=== PATIENT | female | born 1995 | race Caucasian/White ===

== ENCOUNTER → 2020-08-28 11:04 | Outpatient (CLI) | payer BC, SELFPAY ==
--- NOTE | ~2020-08-28 | US_ITS ---
EXAMINATION: US thyroid EXAM DATE: 08/28/2020 11:25 INDICATION: Hypothyroidism . TECHNIQUE: Multiple grayscale and Doppler images of the thyroid were obtained (by a technologist who performed the scan) and subsequently reviewed. Individual nodules and recommendations may be reporte d in accordance with TI-RADS system as designated by the 2017 ACR White Paper TI-RADS committee. The re is no prior study for comparison. FINDINGS: The right thyroid lobe measures 4.9 x 1.5 x 1.7 cm, the left measuring 3.6 x 0.9 x 1.6 cm. There is m ildly heterogeneous thyroid echogenicity without focal suspicious nodule identified. IMPRESSION: 1. Unremarkable thyroid ultrasound exam. Reviewed, dictated and finalized at location A. HOUSE ATTENDANT
== END ==
PROVIDERS: PCP Emergency Medicine; Visit Provider Emergency Medicine
DX: E03.9 Hypothyroidism, unspecified (principal)
CPT/HCPCS: 76536

== ENCOUNTER 2020-11-08 13:27 | Outpatient (CLI) | payer BC, SELFPAY ==
--- NOTE | ~2020-11-08 | CT_ITS ---
EXAMINATION: CT abdomen pelvis w con DATE: 11/08/2020 14:02 INDICATION: Right lower quadrant abdominal pain. TECHNIQUE: Computed tomography (CT) of the abdomen and pelvis was performed with 100 mL Omnipaque 350 intravenous contrast. Automated exposure control and iterative reconstruction technique were employe d. The dose-length product was 663.20 mGy-cm. COMPARISON: CT abdomen and pelvis 04/22/2019 FINDINGS: The visualized portions of the lung bases demonstrate mild atelectasis. No pleural effusion . The heart size is normal. No pericardial effusion. The liver, gallbladder, spleen, pancreas, adrena l glands, and kidneys are normal. There are no dilated loops of bowel. The appendix is normal. The ut erus and ovaries are unremarkable. There is trace pelvic ascites. There are no pathologically enlarge d lymph nodes. The bones are unremarkable. IMPRESSION: 1. No etiology for the patient's symptoms. Reviewed, dictated and finalized at location B.
[2020-11-08 15:44] LABS: Add Urine Microscopic? YES; Appearance Urine Clear (Clear); Bacteria Urine Trace /hpf; Bilirubin Urine Negative (Negative); Blood Urine Negative (Negative); Color Urine Straw (Yellow); Glucose Urine UA Negative (Negative); Ketones Urine Trace mg/dL (Negative); Leukocyte Esterase Ur Negative LEU/UL (Negative); Mucus Urine Rare /lpf; Nitrate Urine Negative (Negative); Protein Urine Negative (Negative); RBC Urine 0-2 /hpf (0-2); Squamous Epithelial Cell Urine Many /hpf (Few); Urobilinogen Urine Negative mg/dL (<2.0); WBC Urine 0-3 /hpf
[2020-11-08 15:51] LABS: Specific Grav Ur > 1.060 (1.001-1.035)
== END 2020-11-08 13:28 | disposition home or self-care (01) ==
PROVIDERS: PCP Emergency Medicine; Visit Provider Emergency Medicine
DX: R10.30 Lower abdominal pain, unspecified (principal)
CPT/HCPCS: 74177; 81001; Q9967

== ENCOUNTER 2022-06-28 21:19 | Outpatient (NON) | payer OTHER, SELFPAY | END 2022-06-28 21:20 | disposition home or self-care (01) | LOC: ANHLAB 21:21 | PROVIDERS: PCP Emergency Medicine; Visit Provider Emergency Medicine | DX: R30.0 Dysuria (principal) | CPT/HCPCS: 87086 ==

== ENCOUNTER 2022-12-09 07:53 | Emergency (ER) | payer OTHER, SELFPAY ==
[2022-12-09] VITALS (12 sets, daily range): BP systolic 105–136; BP diastolic 71–86; PULSE 90–137; RESP 16–21; TEMP 36.6; O2SAT 99–100
--- NOTE | 2022-12-09 08:11 | ECG_ITS ---
Measurements Intervals Banks Rate: 101 P: 58 RI: 139 QRS: 27 QRSD: 91 T: -9 QT: 316 QTc: 411 Interpretive Statements SINUS TACHYCARDIA NONSPECIFIC T-WAVE ABNORMALITY BORDERLINE ECG NO PREVIOUS ECG AVAILABLE FOR COMPARISON Electronically Signed On 12-09-2022 17:04:01 CDT by Andrea Bautista M.D.
[2022-12-09] MEDS: SODIUM CHLORIDE 0.9% IV 1,000 ML 999 ML IV CONT (08:31)
[2022-12-09] MEDS: LORazepam INJ (*CRX) 2 MG/ML VIAL 0.5 MG IV PUSH (08:31)
[2022-12-09 08:32] LABS: Eosinophils Absolute Auto 0.1 K/mm3 (0-0.3); Eosinophils Percent Auto 0.8 % (0-4.4); Hematocrit 41.1 % (37.0-47.0); Hemoglobin 14.4 g/dL (12.0-15.0); Immature Granulocyte Absolute 0.02 K/mm3 (0.00-0.031); Immature Granulocyte Percent A 0.3 % (0-0.5); Lymphocytes Absolute Auto 1.57 K/mm3 (0.9-3.2); Lymphocytes Percent Auto 23.7 % (18.3-44.2); Mean Corpuscular Hemoglobin 31.4 pg (26-34); Mean Corpuscular Volume 89.7 fl (80-100); Mean Platelet Volume 11.6 fl (7.4-10.4); Monocytes Absolute Auto 0.4 K/mm3 (0.1-0.6); Monocytes Percent Auto 5.4 % (2.6-8.5); Neutrophils Absolute Auto 4.6 K/mm3 (1.3-6.7); Neutrophils Percent Auto 69.8 % (45.5-73.1); Platelet Count Result 194 k/mm3 (150-375); Red Blood Count 4.58 M/mm3 (4.2-5.4); Red Cell Distribution Width 12.1 % (11.5-14.5); White Blood Count 6.6 K/mm3 (4.5-10.0)
[2022-12-09 08:42] LABS: Prothrombin Time 14.1 Seconds (11.1-14.7)
[2022-12-09 08:44] LABS: Partial Thromboplastin Time 77.4 SECONDS (22.3-36.8)
--- NOTE | 2022-12-09 08:46 | PC.NURSE ---
Called poison control, spoke with Tamera and she said that the amount that pt ingested is not enough to cause any damage and she is not expecting any problems and no treatments needed. If ED MD want cam do blood work to check liver enzymes. According to poison control pt needs to ingest over 17.5g to expect any damages.
[2022-12-09 08:47] LABS: Alanine Aminotransferase 18 U/L (6-35); Albumin Level 4.7 g/dL (3.5-5.1); Alkaline Phosphatase 54 U/L (38-126); Anion Gap 9 mmol/L (8-16); Aspartate Amino Transferase 25 U/L (14-36); Bilirubin,Total 0.5 mg/dL (0.2-1.3); Blood Urea Nitrogen 13 mg/dL (7-17); Calcium 9.1 mg/dL (8.4-10.2); Carbon Dioxide 24 mmol/L (22-30); Chloride 106 mmol/L (98-107); Estimated CRCL calculation 114 ml/min; Estimated Glomerular Filt Rate > 60; Glucose 125 mg/dL (65-110); Potassium 3.7 mmol/L (3.4-5.0); Sodium 139 mmol/L (137-145)
[2022-12-09 08:51] LABS: Acetaminophen < 10 ug/mL (10-30); Ethanol < 10 mg/dL (<10); Salicylate < 1.0 mg/dL (2-20)
[2022-12-09 08:52] LABS: Appearance Urine Cloudy (Clear); Bacteria Urine None Seen /hpf; Bilirubin Urine Negative (Negative); Blood Urine Negative (Negative); Color Urine Yellow (Yellow); Glucose Urine UA Negative (Negative); Ketones Urine Negative (Negative); Leukocyte Esterase Ur Trace LEU/UL (Negative); Nitrate Urine Negative (Negative); Non Pathogenic Casts 0-2; Protein Urine Negative (Negative); RBC Urine 0-2 /hpf (0-2); Specific Grav Ur 1.009 (1.001-1.035); Squamous Epithelial Cell Urine Few /hpf (Few); Urobilinogen Urine 0.2 mg/dL (<2.0); WBC Urine 0-5 /hpf; pH Urine 6.5 (5.0-9.0)
[2022-12-09 08:56] LABS: Add Urine Microscopic? YES
[2022-12-09 09:04] LABS: Amphetamine Screen Urine Negative (Negative); Barbiturate Screen Urine Negative (Negative); Benzodiazepines Screen Urine Positive (Negative); Cannabinoid Screen Urine Positive (Negative); Cocaine Screen Urine Negative (Negative); Methadone Screen Urine Negative (Negative); Opiate Screen Urine Negative (Negative); Phencyclidine Screen Urine Negative (Negative)
--- NOTE | 2022-12-09 09:57 | ED.GENADULT ---
HPI - General Adult General Chief complaint: Unspecified Stated complaint: poss tylenol od Time Seen by Provider: 12/09/22 07:59 History of Present Illness HPI narrative: Patient is a 27-year-old female who presents ER with concerns of possible overdose on acetaminophen. Reports she had a headache yesterday and was taking 2 g of Tylenol at a time. She did this over the course of 3 different medication administrations at 4-hour intervals. After she realized that she was taking too much Tylenol she purchased [id number] activated charcoal and took 4 g and also made herself vomit. She has been having anxiousness throughout the evening after reading about what may happen if you overdose on Tylenol so she came in for further evaluation. She denies any suicidal ideation or active depression. She reports this is merely a mistake. No abdominal pain at this time or nausea or vomiting. Denies fevers chills or sweats. No additional concerns. Related Data Home Medications Medication Instructions Recorded Confirmed lamotrigine 200 mg tablet 200 mg PO DAILY 04/12/22 06/28/22 paliperidone 1.5 mg 1.5 mg PO QAM 04/12/22 06/28/22 tablet,extended release 24 hr alprazolam 1 mg tablet 1 mg PO 07/04/22 clonazepam 1 mg tablet 1 mg PO 07/04/22 gabapentin 100 mg capsule 100 mg PO 07/04/22 trazodone 100 mg tablet 100 mg PO 07/04/22 Allergies Allergy/AdvReac Type Severity Reaction Status Date / Time ciprofloxacin Allergy Unknown Verified 12/09/22 08:08 Review of Systems Review of Systems: All systems reviewed & are unremarkable except as noted in HPI and below Constitutional: Constitutional: Denies chills and Denies fever(s) Respiratory: Respiratory: Denies cough and Denies dyspnea Gastrointestinal: Gastrointestinal: Denies abdominal pain, Denies diarrhea, Denies nausea and Reports vomiting Psychiatric: Psychiatric: Reports anxiety, Denies depression, Denies homicidal ideation and Denies suicidal ideation [facility] Past Medical History Medical History (Updated 12/09/22 @ 10:12 by Hayden Parry MD) Allergies Anxiety Family History Family History Father Hypertension Heart problem Mother Alcoholism Hypertension Heart problem Thyroid disorder Sibling Alcoholism Grandparent Alcoholism Cancer Hypertension Heart problem Social History Social History Smoking status: Never smoker Alcohol intake: never Substance use type: does not use Lack of Transportation: No Lack of Food: Never True Current Housing: I Have Housing Concerned About Future Housing: No Difficulty Paying Gas/Electric Bills: No Difficulty Paying for Meds: No Currently Unemployed: No Education: Master's Degree or Higher Difficulty w/ Childcare or Family Care: No Exam Narrative: GENERAL: Well-appearing, well-nourished, and in no acute distress. HEAD: Normocephalic, atraumatic. EYES: PERRL and EOMI. ENT: Mucous membranes moist. CHEST: Clear to auscultation. No respiratory distress. HEART: Tachycardic and regular. Normal peripheral pulses. ABDOMEN: Soft, nontender, nondistended. EXTREMITIES: Normal range of motion. No edema. SKIN: Warm, dry, no rash. NEURO: Alert and oriented x3. PSYCH: Mildly anxious, no SI or depression. Course Course Emergency Course: Patient resting comfortably and less anxious. She has been given reassurance. We have contacted poison control and they feel patient is safe for discharge and did not reach a toxic dose, they feel like she would have to take 17 g of acetaminophen. Vital Signs Vital signs: Vital Signs Temperature 97.9 F 12/09/22 07:58 Pulse Rate 132 H 12/09/22 07:58 Respiratory Rate 21 H 12/09/22 07:58 Blood Pressure 136/86 12/09/22 07:58 Pulse Oximetry 100 12/09/22 07:58 Oxygen Delivery Room Air 12/09/22 07:58 Temperature 97.9
== END 2022-12-09 10:10 | disposition home or self-care (01) ==
PROVIDERS: Emergency Provider Emergency Medicine; PCP Emergency Medicine
DX: T39.1X1A Poisoning by 4-Aminophenol derivatives, accidental (unintentional), initial encounter (principal); F41.9 Anxiety disorder, unspecified
CPT/HCPCS: 36415; 80048; 80076; 80307; 81001; 81025; 85025; 85610; 85730; 93005; 96361; 96374; 99284; J2060; J7030

== ENCOUNTER 2023-01-26 16:46 | Emergency (ER) | payer OTHER, SELFPAY ==
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
== END 2023-01-26 17:21 | disposition home or self-care (01) ==
PROVIDERS: Emergency Provider Nurse Practitioner Family; PCP Family Medicine
DX: S06.0X9A Concussion with loss of consciousness of unspecified duration, initial encounter (principal); Y04.8XXA Assault by other bodily force, initial encounter; F41.9 Anxiety disorder, unspecified
CPT/HCPCS: 99211; 99213; G0463

== ENCOUNTER 2023-02-12 08:36 | Outpatient (CLI) | payer OTHER, SELFPAY ==
--- NOTE | 2023-02-18 15:49 | WPDHOMESLEEP ---
Sleep Study - Home Unattended Date of Study: 02/12/23 Ordering Provider: Torri Cook DO Interpreting Provider: Torri Cook DO Home Sleep Study Type: Watch PAT Height: 1.68 m Weight: 86.183 kg Body Mass Index: 30.7 Neck Circumference (inches): 13 Hortense: 23 Reason for Sleep Study Daytime hypersomnia Sleep History The patient is a 28-year-old female that had a sleep study ordered for evaluation of hypersomnia. The patient occasionally awakens from sleep short of breath. She denies awakening at night with heartburn, belching or cough. She constantly snores loudly enough that others complain. He constantly has trouble sleeping when she has a cold. She occasionally wakes up gasping for air throughout the night. She frequently has breathing problems at night observed by herself or others. She frequently sweats excessively at night. She frequently has heart palpitations or irregular heartbeats during the night. She frequently falls asleep during the day but never while driving. She denies cataplexy and hypnagogic / hypnopompic hallucinations. She constantly has trouble at school or work due to sleepiness. She rarely feels unable to move waking up or falling asleep. She constantly feels afraid of going to sleep. She occasionally has nightmares but rarely remembers her dreams. She constantly has thoughts racing through her mind. She constantly feels sad, depressed and anxious. She constantly has muscular tension. She frequently notices parts of her body jerk. She frequently kicks during the night. She frequently has crawling and aching feelings in her legs and frequently has leg pain during the night. She constantly grinds her teeth during sleep and constantly awakens with morning jaw pain. She is constantly bothered by pain during the day but rarely awakened by pain during the night. She constantly wakes up feeling stiff in the morning. She constantly wakes up with sore or achy muscles. She constantly wakes up with pain in the neck, spine and other joints. She goes to bed at 11 a.m. on weekdays and between 11:00 p.m. to midnight on the weekends. It takes her 1 hour to fall asleep. She wakes up 1-2 times throughout the night to urinate and a can take anywhere from 30 minutes to 2 hours to fall back asleep. She wakes up between 7-8 a.m. on weekdays and between 7-9 a.m. on the weekends. She typically gets 7-8 hours of sleep per night. She will stay in bed for 20 minutes after waking up in the morning. She currently lives with her . She denies consuming any caffeinated beverages within 2 hours of bedtime. She denies engaging in physical exercise before bedtime. She will watch television before falling asleep. She denies taking naps in the afternoon or the evening. She consumes 1/3 of a cup of coffee per day. She is a former smoker. She denies alcohol and recreational drug use. [facility] Past Medical History Medical History Allergies Anxiety Family History Family History Father Hypertension Heart problem Mother Alcoholism Hypertension Heart problem Thyroid disorder Sibling Alcoholism Grandparent Alcoholism Cancer Hypertension Heart problem Social History Social History Smoking status: Never smoker Alcohol intake: never Substance use type: does not use Lack of Transportation: No Lack of Food: Never True Current Housing: I Have Housing Concerned About Future Housing: No Difficulty Paying Gas/Electric Bills: No Difficulty Paying for Meds: No Currently Unemployed: No Education: Master's Degree or Higher Difficulty w/ Childcare or Family Care: No Medications Home Medications Medication Instructions Recorded Confirmed Type alprazolam 1 mg tablet 1 mg PO DAILY 07/04/22 01/30/23
[2023-02-18 15:57] VITALS: BMI 30.7
== END 2023-02-13 10:05 | disposition home or self-care (01) ==
LOC: ANHCSM 09:06
PROVIDERS: PCP Family Medicine; Visit Provider Family Medicine
DX: G47.9 Sleep disorder, unspecified (principal)
CPT/HCPCS: 95800

== ENCOUNTER 2023-08-21 12:42 | Outpatient (CLI) | payer BC, SELFPAY ==
[2023-08-21 20:19] LABS: Appearance Urine Clear (Clear); Bilirubin Urine Negative (Negative); Blood Urine Negative (Negative); Color Urine Yellow (Yellow); Glucose Urine UA Negative (Negative); Ketones Urine Negative (Negative); Leukocyte Esterase Ur Negative LEU/UL (Negative); Nitrate Urine Negative (Negative); Protein Urine Negative (Negative); Specific Grav Ur 1.005 (1.001-1.035); Urobilinogen Urine 0.2 mg/dL (<2.0)
[2023-08-21 20:20] LABS: Add Urine Microscopic? NO
== END 2023-08-21 12:43 | disposition home or self-care (01) ==
LOC: ANHGOSHLAB 12:44
PROVIDERS: PCP Emergency Medicine; Visit Provider Emergency Medicine
DX: R30.0 Dysuria (principal)
CPT/HCPCS: 81003

== ENCOUNTER 2024-05-03 12:17 | Emergency (ER) | payer BC, SELFPAY ==
--- NOTE | ~2024-05-03 | XR_ITS ---
EXAMINATION: XR toe 1st RT min 2V DATE: 05/03/2024 12:44 INDICATION: Right great toe injury. TECHNIQUE: 4 views of right great toe were obtained. COMPARISON: None. FINDINGS: Alignment is normal. No fracture. Joint spaces are normal. IMPRESSION: 1. No fracture. Reviewed, dictated and finalized at location A. OR SUSTAINABILITY CONSULTANT IMPRESSION: 1. No fracture.
[2024-05-03 12:25] VITALS: BP 117/88; PULSE 64; RESP 16; TEMP 36.4; O2SAT 99
[2024-05-03 12:26] VITALS: BP 117/88; PULSE 64; RESP 16; TEMP 36.4; O2SAT 99
--- NOTE | 2024-05-03 12:33 | ED.LOWEXIN ---
HPI - Extremity Injury (Lower) General Chief Complaint: Extremity Injury, Lower Stated Complaint: Injured Toe Right Foot Time Seen by Provider: 05/03/24 12:38 Source: patient, RN notes reviewed and old records reviewed Mode of arrival: ambulatory Limitations: no limitations History of Present Illness HPI Narrative: 29 year old female accompanied by spouse presents to express care with complaints of stubbing her right great toe on the wall on Friday with medial aspect of toe nail loose with redness along nail bed and some drainage reported. Patient reports that she has been soaking her right great toe in Epsom salt soaks rinsing with water and then applying Betadine ointment to nail bed. Patient concerned of infection and states odor to her toe nail drainage. Patient states that she has been taking Ibuprofen and Tylenol for her discomfort.Patient reports that she has appointment with podiatry later in week to have big toe nails removed bilaterally due to ingrown nails MD complaint: other (toe injury) Onset (ago): day(s) (3 days ago) Injury: Right: toes (right great toe) Type of Injury: blunt Severity scale (1-10): 7 Treatments prior to arrival: NSAIDS and other (soaking in epsom salt soaks, betadine ointment, Tylenol and Ibuprofen) Related Data Home Medications Medication Instructions Recorded Confirmed alprazolam 1 mg tablet 1 mg PO DAILY 07/04/22 05/03/24 clonazepam 1 mg tablet 1 mg PO HS 07/04/22 05/03/24 Allergies Allergy/AdvReac Type Severity Reaction Status Date / Time ciprofloxacin Allergy Unknown Verified 05/03/24 12:25 prednisone AdvReac Unknown Rash Verified 05/03/24 12:25 Review of Systems Review of Systems: CONSTITUTIONAL: Denies fever, chills, or sweats. EYES: Denies visual changes, redness, or discharge. ENT: Denies rhinorrhea, congestion, sore throat, or otalgia. CARDIOVASCULAR: Denies chest pain, palpitations, or edema. RESPIRATORY: Denies cough or dyspnea. GASTROINTESTINAL: Denies abdominal pain, nausea, vomiting, or diarrhea. GENITOURINARY: Denies dysuria or hematuria. SKIN: Denies rash or itching. MUSCULOSKELETAL: Denies back pain,positive pain to right great toe with medial aspect of toenail loose with some purulent drainage, or myalgia. NEUROLOGIC: Denies headache, numbness, or weakness. PSYCHIATRIC: Reports anxiety or depression. All systems reviewed & are unremarkable except as noted in HPI and below PMFSH Past Medical History Medical History Allergies Anxiety Family History Family History Father Hypertension Heart problem Mother Alcoholism Hypertension Heart problem Thyroid disorder Sibling Alcoholism Grandparent Alcoholism Cancer Hypertension Heart problem Social History Social History Smoking status: Never smoker Alcohol intake: never Substance use type: does not use Lack of Transportation: No Lack of Food: Never True Current Housing: I Have Housing Concerned About Future Housing: No Difficulty Paying Gas/Electric Bills: No Difficulty Paying for Meds: No Currently Unemployed: No Education: Master's Degree or Higher Difficulty w/ Childcare or Family Care: No Comments At time of signature, agree with nursing past medical, surgical, social and family history. There is no relevant family history pertinent to the presenting complaint Exam Narrative: GENERAL: Well-appearing, well-nourished, and in no acute distress. HEAD: Normocephalic, atraumatic. EYES: PERRLA and EOMI. ENT: Nares clear, no rhinorrhea or epistaxis. Mucous membranes moist.TM's normal throat pink with no swelling or lesions NECK: Supple. no lymphadenopathy CHEST: Clear to auscultation. No respiratory distress.SAO2 99% on room air HEART: Regular rate and rhythm. No murmur heard. Normal peripheral pulses. ABDOMEN: Soft, nontender, nondistended, normal active bowel sounds. EXTREMITIES: Normal range of motion. No edema. Pa with some swelling to right great toe after stubbing on wall on Friday with medial aspect of great toe nail loose with reported purulent drainage, has soaked great toe in Epsom salt soaks, applied Betadine ointment to great toenail area and has been taking Tylwn and Ibuprofen for her toe pain, concern for fracture of toe. SKIN: Warm, dry, no rash. NEURO: No focal deficits. Alert and oriented x3. Course Course Emergency Course: Patient is aware of diagnosis, understands and agrees to treatment plan.? Anticipatory guidance given.? Patient agrees to follow-up as directed and is aware of reasons to seek care at the emergency department. Portions of this record may have been created with voice recognition software Level of Care: Express Care Visit Vital Signs Vital signs: Vital Signs Temperature 36.4 C 05/03/24 12:25 Pulse Rate 64 05/03/24 12:25 Respiratory Rate 16 05/03/24 12:25 Blood Pressure 117/88 05/03/24 12:25 Pulse Oximetry 99 05/03/24 12:25 Oxygen Delivery Room Air 05/03/24 12:25 Temperature 36.4 C 05/03/24 12:26 Pulse Rate 64 05/03/24 12:26 Respiratory Rate 16 05/03/24 12:26 Blood Pressure 117/88 05/03/24 12:26 Pulse Oximetry 99 05/03/24 12:26 Oxygen Delivery Room Air 05/03/24 12:26 Reviewed MDM - Extremity Injury (Lower) Differential Diagnosis Differential diagnosis: Likely fracture of toe and other (toe nail injury, possible infection right great toe, evaluation of wound) Medical Records Attestation: I reviewed the patient's medical records. Imaging Data Attestation: I personally reviewed and interpreted this imaging study as follows: My impression: no fracture Radiologist's impression: Express Care [address] [id number] XRay Report Signed Patient: Yesy Cortes : 1995 MR#: [id number] Age: 29 Acct:[id number] Loc: [id number] ADM Date: 05/03/24Attending Dr: Ordering Physician: Laurel Lan APRN Date of Service: 05/03/24 Procedure(s): XR toe 1st RT min 2V Accession Number(s): [id number] cc: Laurel Lan APRN; Fredo White DO~ EXAMINATION: XR toe 1st RT min 2V DATE: 05/03/2024 12:44 INDICATION: Right great toe injury. TECHNIQUE: 4 views of right great toe were obtained. COMPARISON: None. FINDINGS: Alignment is normal. No fracture. Joint spaces are normal. IMPRESSION: 1. No fracture. Reviewed, dictated and finalized at location A. [place] REMOTE SENSING SCIENTIST Dictated By: Jd Malik MD 05/03/24 1249 Signed By: <Electronically signed by Jd Malik MD in OV> Critical Care Time Critical Care Time Critical Care Time: No Discharge Plan Discharge Clinical Impression: Injury of right great toe, Injury of nail bed of toe Patient Disposition: Home, Self-Care Condition: Stable Instructions: Antibiotic Form, Wound Infection (ED), Foot Contusion (ED) Additional Instructions: soak right great toe in warm soapy water using Hibiclens soap pat dry apply mupirocin ointment twice daily watch for increasing infection--redness, swelling, drainage Tylenol or ibuprofen for any fever pain may use ice to area for 20 minutes every 4 for hours 3-4 times daily follow up with PCP in 7-10 days for a wound check recheck if develop fever, chills, increasing symptom Go to the ER if your symptoms become worse of if ANY new symptoms develop antibiotic as prescribed complete all doses take probiotic while taking this medication follow-up with your hotel or motel receptionist on , Prescriptions: New mupirocin 2 % ointment 1 applic topical BID Qty: 22 0RF clindamycin HCl 300 mg capsule 300 mg PO Q8H Qty: 30 0RF No Action clonazepam 1 mg tablet 1 mg PO HS alprazolam 1 mg tablet 1 mg PO DAILY drospirenone-ethinyl estradiol [Loryna (28)] 3-0.02 mg tablet 1 tablet PO DAILY Qty: 84 3RF Follow-up/Referrals: Fredo White DO [Primary Care Provider] - Time of Disposition: 13:07 Quality [place] Coma Scale Eyes: Open Verbal: Oriented and Alert Motor: Follows Commands [place] Total Score: 15
== END 2024-05-03 13:09 | disposition home or self-care (01) ==
PROVIDERS: Emergency Provider Registered Nurse; PCP Internal Medicine
DX: S99.921A Unspecified injury of right foot, initial encounter (principal); W22.01XA Walked into wall, initial encounter; F41.9 Anxiety disorder, unspecified
CPT/HCPCS: 73660; 99213; G0463

== ENCOUNTER 2024-08-31 17:26 | Emergency (ER) | payer BC, SELFPAY ==
--- NOTE | 2024-08-31 17:38 | ED.URI ---
HPI - URI/Sore Throat General Chief Complaint: Upper Respiratory Infection Stated Complaint: VOMITING/SWEATS/BODY ACHES/SOB Time Seen by Provider: 08/31/24 18:11 Source: patient, RN notes reviewed and old records reviewed Mode of arrival: ambulatory Limitations: no limitations History of Present Illness HPI Narrative: patient presents with complaints of flu-like symptoms for 5 days. She has been taking Tylenol and ibuprofen for her symptoms with moderate relief. She reports that she has begun to notice some wheezing, especially when she is lying down at night Related Data Home Medications ?Medication ?Instructions ?Recorded ?Confirmed ?Last Taken ?Type alprazolam 1 mg tablet 1 mg PO DAILY 07/04/22 07/23/24 Unknown History clonazepam 1 mg tablet 3 mg PO HS 06/28/24 07/23/24 Unknown History hydroxyzine HCl 10 mg tablet 10 mg PO TID PRN 06/28/24 07/23/24 Unknown History lamotrigine 200 mg tablet 200 mg PO DAILY 06/28/24 07/23/24 Unknown History (Lamictal) melatonin 10 mg capsule 10 mg PO QHS 06/28/24 07/23/24 Unknown History paliperidone 3 mg tablet,extended 3 mg PO QAM 06/28/24 07/23/24 Unknown History release 24 hr propranolol 10 mg tablet 10 mg PO Q12H 06/28/24 07/23/24 Unknown History trazodone 150 mg tablet 150 mg PO QHS PRN 06/28/24 07/23/24 Unknown History amitriptyline 10 mg tablet mg 08/31/24 Unknown History hydroxyzine HCl 25 mg tablet mg 08/31/24 Unknown History propranolol 20 mg tablet mg 08/31/24 Unknown History quetiapine 50 mg tablet mg 08/31/24 Unknown History Allergies Allergy/AdvReac Type Severity Reaction Status Date / Time ciprofloxacin Allergy Unknown Verified 08/31/24 17:48 prednisone AdvReac Unknown Rash Verified 08/31/24 17:48 Review of Systems Review of Systems: All systems reviewed & are unremarkable except as noted in HPI and below Constitutional: Constitutional: Reports no additional constitutional complaints, Reports body ache(s), Reports chills, Reports fever(s), Reports headache(s) and Reports lethargy ENT: Reports system reviewed and no additional complaints, except as documented, Reports nasal discharge and Reports sore throat Cardiovascular: Cardiovascular: Reports no additional cardiovascular complaints Respiratory: Respiratory: Reports no additional respiratory complaints, Reports cough and Reports wheezing Gastrointestinal: Gastrointestinal: Reports no additional gastrointestinal complaints and Reports nausea PMFSH Past Medical History Medical History Polyarthralgia Anxiety Allergies Family History Family History Father Hypertension Heart problem Mother Alcoholism Hypertension Heart problem Thyroid disorder Sibling Alcoholism Grandparent Alcoholism Cancer Hypertension Heart problem Social History Social History Smoking status: Never smoker Alcohol intake: never Substance use type: does not use Lack of Transportation: No Lack of Food: Never True Current Housing: I Have Housing Concerned About Future Housing: No Difficulty Paying Gas/Electric Bills: No Difficulty Paying for Meds: No Currently Unemployed: No Education: Master's Degree or Higher Difficulty w/ Childcare or Family Care: No Comments At the time of my signature, I reviewed and agree with the nursing past medical, surgical, social, and family history. There is no relevant family history pertinent to the patient complaint. Exam Const: General: cooperative, no acute distress, alert and awake Orientation/consciousness: oriented to person, oriented to place and oriented to time HENMT: Head: normal to inspection Ears: TM's normal bilaterally Mouth: Yes moist mucous membranes Resp: Effort & Inspection: normal respiratory effort and able to speak in complete sentences Auscultation: clear to auscultation bilaterally, no crackles, no rales, no rhonchi and wheezes scattered wheezes Cardio: Palpation: normal PMI Rate: regular rate Rhythm: regular rhythm Heart sounds: S1 normal heart sound present and S2 normal heart sound present Neuro: General: oriented to person, oriented to place and oriented to time Cranial nerves: Yes CN's II-XII intact bilaterally Psych: Appearance: grossly normal Thought process: Normal thought process present Insight: Good insight present (Psych) Judgement: Good judgement present (Psych) Course Course Level of Care: Express Care Visit Vital Signs Vital signs: Vital Signs Oxygen Delivery Room Air 08/31/24 18:05 Temperature 98 F 08/31/24 18:46 Pulse Rate 86 08/31/24 18:46 Respiratory Rate 16 08/31/24 18:46 Blood Pressure 117/62 08/31/24 18:46 Pulse Oximetry 98 08/31/24 18:46 Oxygen Delivery Room Air 08/31/24 18:05 Reviewed MDM - URI/Sore Throat MDM Narrative Medical decision making narrative: Patient with mild scattered wheezes on exam. Positive influenza. Start steroids, bronchodilator, cough suppressant. Also start anti emetic. Emergency department precautions discussed with patient. Discharge instructions reviewed with patient, as well as provided in writing per nursing staff. The instructions also include specific and strict return/GO TO THE ER as well as f/u information. All questions have been answered, and the patient deny any further questions with discharge and discharge plan. Some parts of this dictation were generated by voice recognition software and may contain typographical and/or grammatical inaccuracies. Differential Diagnosis Differential diagnosis: Likely upper respiratory infection, otitis media, bronchitis and influenza Medical Records Attestation: I reviewed the patient's medical records. Lab Data Attestation: I reviewed the patient's lab results. Labs: Lab Results 08/31/24 Range/Units 17:46 POC Influenza A Ag Positive (Negative) POC Influenza B Ag Negative (Negative) POC SARS CoV-2 Ag Negative (Negative) POC Grp A Strep Screen Negative (Negative) Discharge Plan Discharge Clinical Impression: Influenza Patient Disposition: Home, Self-Care Condition: Stable Instructions: Antibiotic Form, Influenza (ED) Additional Instructions: take medication as prescribed. Follow-up with primary care provider. Emergency department for new or worse symptoms Patient Language: Maltese Prescriptions: New methylprednisolone [Medrol (Heladio)] 4 mg tablets,dose pack See Rx Instructions .ROUTE .COMPLEX Qty: 21 0RF Rx Instructions: for 6 days albuterol sulfate [Ventolin HFA] 90 mcg/actuation HFA aerosol inhaler 2 puff inhalation QID PRN (Reason: shortness of breath or wheezing) Qty: 8.5 0RF ondansetron 4 mg tablet,disintegrating 4 mg PO Q6H PRN (Reason: nausea and vomiting) Qty: 30 0RF benzonatate 200 mg capsule 200 mg PO TID PRN (Reason: cough) Qty: 30 0RF No Action amitriptyline 10 mg tablet hydroxyzine HCl 25 mg tablet propranolol 20 mg tablet quetiapine 50 mg tablet alprazolam 1 mg tablet 1 mg PO DAILY clonazepam 1 mg tablet 3 mg PO HS paliperidone 3 mg tablet extended release 24hr 3 mg PO QAM lamotrigine [Lamictal] 200 mg tablet 200 mg PO DAILY trazodone 150 mg tablet 150 mg PO QHS PRN melatonin 10 mg capsule 10 mg PO QHS hydroxyzine HCl 10 mg tablet 10 mg PO TID PRN propranolol 10 mg tablet 10 mg PO Q12H triamcinolone acetonide 0.1 % cream 1 applic topical BID Qty: 80 1RF drospirenone-ethinyl estradiol [Loryna (28)] 3-0.02 mg tablet 1 tablet PO DAILY Qty: 84 3RF cyclobenzaprine 10 mg tablet 10 mg PO TID PRN (Reason: muscle spasm) Qty: 30 2RF Follow-up/Referrals: Fredo White DO [Primary Care Provider] - 1 Week Stand Alone Forms: Work/School Release IP Time of Disposition: 18:26
[2024-08-31 17:49] LABS: EDCOVIDSCREEN Negative (Negative); EDINFLUASCREEN Positive (Negative); EDINFLUBSCREEN Negative (Negative); EDSTREPNEGPOS1 Negative (Negative)
[2024-08-31] MEDS: methylPREDNISolone SOD SUCC 125 MG VIAL IM (18:29)
[2024-08-31 18:46] VITALS: BP 117/62; PULSE 86; RESP 16; TEMP 36.6; O2SAT 98
== END 2024-08-31 18:58 | disposition home or self-care (01) ==
PROVIDERS: Emergency Provider Nurse Practitioner Family; PCP Internal Medicine
DX: J10.1 Influenza due to other identified influenza virus with other respiratory manifestations (principal); Z20.822 Contact with and (suspected) exposure to COVID-19
CPT/HCPCS: 87081; 87426; 87804; 87880; 99213; G0463; J2919

== ENCOUNTER 2024-09-16 13:33 | Emergency (ER) | payer BC, SELFPAY ==
--- NOTE | ~2024-09-16 | XR_ITS ---
XR chest 2V Ordering provider: Jayson Valentine APRN History: 29 years Female with . cough/sob influenza + on 09/01 . Comparison: None. FINDINGS: MEDIASTINUM: The cardiac silhouette is not enlarged. LUNGS: No infiltrates, effusions or pneumothorax. OTHER: No free air under the diaphragm. IMPRESSION: No acute cardiopulmonary pathology. Reviewed, dictated and finalized at location A.
--- NOTE | 2024-09-16 13:39 | ED_ITS ---
HPI - SOB/Dyspnea General Chief Complaint: Upper Respiratory Infection Stated Complaint: Trouble breathing Time Seen by Provider: 09/16/24 13:45 Source: patient Mode of arrival: ambulatory Limitations: no limitations History of Present Illness HPI Narrative: Yesy is a 29-year-old female patient presenting to the clinic today with complaints of difficulty breathing. She reports she has had cough and congestion ever since she had the flu. She was diagnosed with influenza A on August 31, 2024. Has finished her treatment medications which included a Medrol Dosepak, albuterol inhaler, and Tessalon Perles. States she still has a cough that is productive with some yellow phlegm and difficulty breathing. She feels as though she cannot get a full breath in. States that when she is talking she becomes short of breath. Feels as though she is wheezing at times. Has not taken her albuterol inhaler today. Denies any chest pain. No fever since having the flu. No history of asthma or COPD. She is a nonsmoker. She does take control. No recent flights or trauma. Related Data Home Medications ?Medication ?Instructions ?Recorded ?Confirmed ?Last Taken ?Type alprazolam 1 mg tablet 1 mg PO DAILY 07/04/22 07/23/24 Unknown History clonazepam 1 mg tablet 3 mg PO HS 06/28/24 07/23/24 Unknown History hydroxyzine HCl 10 mg tablet 10 mg PO TID PRN 06/28/24 07/23/24 Unknown History lamotrigine 200 mg tablet 200 mg PO DAILY 06/28/24 07/23/24 Unknown History (Lamictal) melatonin 10 mg capsule 10 mg PO QHS 06/28/24 07/23/24 Unknown History paliperidone 3 mg tablet,extended 3 mg PO QAM 06/28/24 07/23/24 Unknown History release 24 hr propranolol 10 mg tablet 10 mg PO Q12H 06/28/24 07/23/24 Unknown History trazodone 150 mg tablet 150 mg PO QHS PRN 06/28/24 07/23/24 Unknown History amitriptyline 10 mg tablet mg 08/31/24 Unknown History hydroxyzine HCl 25 mg tablet mg 08/31/24 Unknown History propranolol 20 mg tablet mg 08/31/24 Unknown History Allergies Allergy/AdvReac Type Severity Reaction Status Date / Time ciprofloxacin Allergy Unknown Verified 09/16/24 13:45 prednisone AdvReac Unknown Rash Verified 09/16/24 13:45 Review of Systems Review of Systems: Pertinent positives per HPI. Patient denies any fever, chills, rash, headache, visual changes, dizziness, cough, shortness of breath, chest pain, palpitations, nausea, vomiting, diarrhea, constipation, abdominal pain, or any urinary issues. PMFSH Past Medical History Medical History Polyarthralgia Anxiety Allergies Family History Family History Father Hypertension Heart problem Mother Alcoholism Hypertension Heart problem Thyroid disorder Sibling Alcoholism Grandparent Alcoholism Cancer Hypertension Heart problem Social History Social History Smoking status: Never smoker Alcohol intake: never Substance use type: does not use Lack of Transportation: No Lack of Food: Never True Current Housing: I Have Housing Concerned About Future Housing: No Difficulty Paying Gas/Electric Bills: No Difficulty Paying for Meds: No Currently Unemployed: No Education: Master's Degree or Higher Difficulty w/ Childcare or Family Care: No Comments At the time of my signature, I reviewed and agree with the nursing past medical, surgical, social, and family history. There is no relevant family history pertinent to the patient complaint. Exam Narrative: General: Well-developed, well nourished, in no apparent distress Head: Normocephalic, atraumatic Eyes: Pupils equally round and reactive to light bilaterally, EOM intact, sclera and conjunctive clear, no discharge, lids normal Ears: TMs intact and clear, ear canals clear, no drainage, grossly hearing normal. Nose: Nares patent, no discharge, no inflammation, no sinus tenderness. Mouth: Oral pharynx without lesions or masses, good dentition, MMM. Neck: Supple, trachea midline, no enlargement of anterior or posterior cervical nodes, no thyroid masses or goiter palpable. Cardio: Regular rate and rhythm, s1 and s2 normal, no murmur appreciated. Resp: Lung sounds are diminished in the bases otherwise clear, no rhonchi, rales, wheezing or rubs Course Course Emergency Course: Portions of this record may have been created with voice recognition software. Level of Care: Express Care Visit Vital Signs Vital signs: Vital Signs Temperature 36.7 C 09/16/24 13:44 Pulse Rate 85 09/16/24 13:44 Respiratory Rate 16 09/16/24 13:44 Blood Pressure 117/77 09/16/24 13:44 Pulse Oximetry 99 09/16/24 13:44 Temperature 36.7 C 09/16/24 13:44 Pulse Rate 85 09/16/24 13:44 Respiratory Rate 16 09/16/24 13:44 Blood Pressure 117/77 09/16/24 13:44 Pulse Oximetry 99 09/16/24 13:44 Vital signs reviewed MDM - SOB/Dyspnea MDM Narrative Medical decision making narrative: At the time of visit patient is resting comfortably on the exam table. Patient appears to be nontoxic. Medications: DuoNeb hand-held neb treatment given in the clinic today Diagnostics: Chest x-ray was performed and is negative for any acute cardiopulmonary process. Plan: I suspect patient has bronchitis. Prescription for doxycycline and Medrol Dosepak was sent to the pharmacy. Supportive measures were discussed with the patient and they voiced understanding discharge instructions and agrees to treatment plan. Return precautions reviewed Wells Criteria for PE: 0.0?points Low risk group: 1.3% chance of PE in an ED population. Another study assigned scores <=4 as ?PE Unlikely? and had a 3% incidence of PE. Differential Diagnosis Differential diagnosis: Likely acute exacerbation of chronic obstructive airways disease, congestive heart failure, community acquired pneumonia, asthma with exacerbation, pulmonary embolism and other (Post viral cough syndrome, bronchitis) Imaging Data Radiologist's impression: ITS Impressions Chest X-Ray 09/16/24 13:59 IMPRESSION: No acute cardiopulmonary pathology. Discharge Plan Discharge Clinical Impression: Bronchitis Patient Disposition: Home, Self-Care Condition: Stable Instructions: Antibiotic Form, Acute Bronchitis (ED) Additional Instructions: Chest x-rays negative for any acute cardiopulmonary process Take prescription medications only as prescribed-doxycycline and Medrol Dosepak Continue use of albuterol inhaler. Increase fluids and stay well hydrated Tylenol/motrin for pain/fever Flonase and OTC antihistamines as directed Vicks vapor rub to open sinuses Sinus rinses for congestion Cepacol spray, cough drops, throat lozenges, warm tea with honey/lemon, gargle salt water to soothe throat BRAT diet for diarrhea Clear liquids x 24 hours then advance as tolerated for nausea/vomiting Go to the ED if you develop a worsening in your condition- high fever not controlled by Tylenol or Motrin, dehydration, weakness, lethargy, shortness of breath, or chest pain. Follow up with your PCP in 3-5 days if symptoms persist. Patient Language: Anguill[place] Prescriptions: New methylprednisolone [Medrol (Heladio)] 4 mg tablets,dose pack See Rx Instructions .ROUTE .COMPLEX Qty: 21 0RF Rx Instructions: orally per package directions doxycycline monohydrate 100 mg capsule 100 mg PO BID 7 Days Qty: 14 0RF No Action amitriptyline 10 mg tablet hydroxyzine HCl 25 mg tablet propranolol 20 mg tablet albuterol sulfate [Ventolin HFA] 90 mcg/actuation HFA aerosol inhaler 2 puff inhalation QID PRN (Reason: shortness of breath or wheezing) Qty: 8.5 0RF benzonatate 200 mg capsule 200 mg PO TID PRN (Reason: cough) Qty: 30 0RF alprazolam 1 mg tablet 1 mg PO DAILY clonazepam 1 mg tablet 3 mg PO HS paliperidone 3 mg tablet extended release 24hr 3 mg PO QAM lamotrigine [Lamictal] 200 mg tablet 200 mg PO DAILY trazodone 150 mg tablet 150 mg PO QHS PRN melatonin 10 mg capsule 10 mg PO QHS hydroxyzine HCl 10 mg tablet 10 mg PO TID PRN propranolol 10 mg tablet 10 mg PO Q12H triamcinolone acetonide 0.1 % cream 1 applic topical BID Qty: 80 1RF drospirenone-ethinyl estradiol [Loryna (28)] 3-0.02 mg tablet 1 tablet PO DAILY Qty: 84 3RF Follow-up/Referrals: PHYSICIAN,[employer] [Primary Care Provider] - Stand Alone Forms: Work/School Release IP Time of Disposition: 14:12 Quality NIHSS Nursing Documentation ED NIHSS nursing documentation: reviewed/agree
[2024-09-16 13:44] VITALS: BP 117/77; PULSE 85; RESP 16; TEMP 36.7; O2SAT 99
[2024-09-16] MEDS: IPRATROPIUM 0.5 MG/ALBUTEROL SULFATE 2.5 MG AMPUL.NEB 3 ML INHALATION (13:59)
== END 2024-09-16 14:19 | disposition home or self-care (01) ==
PROVIDERS: Emergency Provider Nurse Practitioner Family
DX: J40 Bronchitis, not specified as acute or chronic (principal)
CPT/HCPCS: 71046; 94640; 99213; G0463